=== PATIENT | male | born 1950 | race Caucasian/White ===

== ENCOUNTER → 2016-09-21 | Day surgery (SDC) | payer MEDICARE ==
[~2016-09-21] MED LIST: APIX5TAB PO; KETOROLAC TROMETHAMINE 30 MG/ML (IVP) VIAL IV PUSH ONE; LACTATED RINGER'S 1000 ML INJ 1,000 ML ONE; LOSA100T PO; METF1000 PO; ONDANSETRON HCL 4 MG/2 ML VIAL IV PUSH ONE; PROPOFOL 200 MG/20 ML AMP IV ONE; TRIAMCINOLONE ACETONIDE 40 MG/ML VIAL ONE; VERA1TAB17 PO; ceFAZolin INJ 1,000 MG VIAL ONE
--- NOTE | 2016-09-21 09:36 | TN ---
cc: URVASHI FOSTER M.D. DATE OF SURGERY: September 21, 2016. PREOPERATIVE DIAGNOSIS Right knee internal derangement. POSTOPERATIVE DIAGNOSIS Right knee medial meniscus tear, mild chondromalacia medial compartment. PROCEDURE Right knee arthroscopic surgery - subtotal medial meniscectomy. SURGEON Roberto Foster MD UNIVERSITY TEACHER RAFAELA Fajardo SPECIMEN None. ESTIMATED BLOOD LOSS None. COMPLICATIONS None. ANESTHESIA General. DRAIN None. TOURNIQUET TIME 9 minutes at 250 mmHg. CONDITION Stable. PLAN OF ACTIVITY Per orders. PROCEDURE My ortho assistant RAFAELA Fajardo was present for the entire surgical case. She was medically necessary for the entire case because of the complexity of the case and to facilitate the performance of the procedure. The BANQUET CAPTAIN at the back table was not a skill set for this case to manipulate the instruments, e.g., the arthroscopy, arthroscopic shaver and arthroscopic meniscal rongeurs. The patient was brought in the operating room and had satisfactory general anesthesia by Dr. Good, Department of Anesthesia. The right lower extremity was prepped and draped in usual sterile manner. A routine anterolateral, anteromedial portals were made. Introduction of arthroscopic instrument was performed. Inflation of the knee was made with sterile Ringer's lactated solution. The arthroscopy was inserted into the knee. Inspection of the patellofemoral compartment revealed normal bearing surfaces of the patellofemoral compartment. Mild degree of synovitis. Lateral compartment showed no evidence of lateral meniscus, normal articular surface lateral compartment. Anterior cruciate ligament was found to be intact. Medial compartment, the patient was found to have a parrot-beak type of tear involving the posterior medial meniscus. The patient was found to have a mild degree of chondromalacia of the posterior medial tibia and minimal degree involving the posterior medial distal femur. Subtotal medial meniscectomy was performed using multiple different types of meniscal rongeurs and shaver. The knee was irrigated with copious amounts of sterile saline. The wound itself was dry. The arthroscopic instruments were removed. The knee was injected with 1 cc of Kenalog 40. The tourniquet was deflated. Incision closed with 3-0 Nylon suture. Sterile dressings were applied. The patient tolerated the procedure well and arrived in the recovery room in stable and satisfactory condition. MD DEB Macdonald/NETO /9:08 AM /9:17 AM
== END | disposition home or self-care (01) ==
LOC: ESDC 07:07
PROVIDERS: ATTEND Orthopaedic Surgery Orthopaedic Surgery of the Spine
DX: S83.241A Other tear of medial meniscus, current injury, right knee, initial encounter (principal); M94.261 Chondromalacia, right knee
CPT/HCPCS: 01400; 29881; J0690; J1885; J2405; J3010; J3301; J7120

== ENCOUNTER → 2016-10-09 | Day surgery (SDC) | payer MEDICARE ==
[~2016-10-09] MED LIST changes: +BUPIVACAINE HCL PF 0.75% 30 ML VIAL ONE; -KETOROLAC TROMETHAMINE 30 MG/ML (IVP) VIAL IV PUSH ONE; +LIDOCAINE 1.5%/EPINEPHrine 1:200,000 PF SOLN 30 ML AMP ONE; +MIDAZOLAM HCL 2 MG/2 ML VIAL ONE; -ONDANSETRON HCL 4 MG/2 ML VIAL IV PUSH ONE; +PROPOFOL 100 MG/10 ML INJ IV ONE; -PROPOFOL 200 MG/20 ML AMP IV ONE; -TRIAMCINOLONE ACETONIDE 40 MG/ML VIAL ONE
--- NOTE | 2016-10-09 15:17 | TN ---
cc: URVASHI FOSTER DATE OF SURGERY: 10/09/2016 PREOPERATIVE DIAGNOSIS 1. Right shoulder recurrent rotator cuff tendon tear. 2. Right shoulder impingement syndrome, osteoarthritis AC joint. 3. Morbid obesity. POSTOPERATIVE DIAGNOSIS 1. Right shoulder recurrent rotator cuff tendon tear. 2. Right shoulder impingement syndrome, osteoarthritis AC joint. 3. Morbid obesity. PROCEDURE Right shoulder rotator cuff tendon repair, Neer decompression acromioplasty, resection acromioclavicular joint. SURGEON Roberto Foster MD ROLL MECHANIC Angelia Brower PA-C SPECIMEN None. ESTIMATED BLOOD LOSS Minimal. COMPLICATIONS None. ANESTHESIA General, interscalene block. DRAINS None. CONDITION Stable. PLAN OF ACTIVITY Per orders. DETAILS OF PROCEDURE My public health training assistant Angelia Brower PA-C was present for the entire surgical case. She was medically necessary for the entire case because of the complexity of the case and to facilitate the performance of the procedure. The FRAMING MILL OPERATOR HELPER at the back table did not have the skill set for this case to manipulate the instruments, e.g., the multiple different types of soft tissue retractors and rotator cuff suturing repair material. The patient was brought into the operating room, had satisfactory interscalene block followed by general anesthesia by Dr. Good part of the department of anesthesia. The right shoulder and upper extremity was all prepped and draped in the usual sterile manner. The previous scar was surgically excised dissecting through an extensive amount of previous scar tissue. The tendinous portion of the deltoid was removed off the anterior aspect and lateral aspect of the acromion and AC joint. The patient was found to have a [id number] tear involving the supraspinatus tendon. An oscillating saw and a bur was used to perform an acromioplasty. The wound was irrigated copiously. The wound itself was dry. Multiple #2 Tycron sutures were used to repair the supraspinatus tendon. The patient had satisfactory decompression of the shoulder. It was irrigated with copious amounts of sterile saline antibiotic solution. The wound itself was dry. The wound was closed in the routine manner. Multiple drill holes were used in the acromion. Multiple #2 Tycron sutures were then used to repair the tendinous portion of the deltoid back to the acromion. The subcutaneous layer was closed with 2-0 Vicryl. The skin was approximated with interrupted 2-0 nylon. Sterile dressings were applied. The patient tolerated the procedure well and arrived in the recovery room in stable and satisfactory condition. MD DEB Macdonald/ELISABETH /2:34 PM /3:07 PM
== END | disposition home or self-care (01) ==
LOC: ESDC 11:50
PROVIDERS: ATTEND Orthopaedic Surgery Orthopaedic Surgery of the Spine
DX: M75.101 Unspecified rotator cuff tear or rupture of right shoulder, not specified as traumatic (principal); M75.41 Impingement syndrome of right shoulder; M19.011 Primary osteoarthritis, right shoulder; E66.01 Morbid (severe) obesity due to excess calories
CPT/HCPCS: 00450; 01630; 01991; 23120; 23420; 64417; J0690; J2250; J7120